=== PATIENT | male | born 1995 | race African-American/Black ===

== ENCOUNTER 2023-08-28 17:39 | Emergency (ER) | payer OTHER ==
[2023-08-28 17:45] VITALS: BP 103/64; PULSE 86; RESP 18; TEMP 98.2; BMI 22.5
[2023-08-28] MEDS ORDERED: diazePAM 2 MG TABLET ONE (18:32)
[2023-08-28] MEDS ORDERED: LIDOCAINE 4% PATCH TP ONE (18:32)
[2023-08-28] MEDS ORDERED: KETOROLAC TROMETHAMINE 30 MG/1 ML VIAL ONE (18:33)
[2023-08-28] MEDS: LIDOCAINE 5% TOPICAL PATCH TP ONE (18:39)
[2023-08-28] MEDS: KETOROLAC TROMETHAMINE 30 MG/1 ML VIAL IM ONE (18:40)
[2023-08-28] MEDS: diazePAM 2 MG TABLET PO ONE (18:41)
[2023-08-28 18:46] LABS: EPI CELLS 10 /uL (0-25.1); HYALINE CASTS 2 /uL (0-3.1); URINE APPEARANCE CLEAR; URINE BACTERIA 4 /uL (0-1359); URINE BILIRUBIN NEGATIVE (NEGATIVE); URINE COLOR DK YELLOW; URINE GLUCOSE (UA) NEGATIVE (NEGATIVE); URINE KETONE 1+ (NEGATIVE); URINE LEUK ESTERASE TRACE (NEGATIVE); URINE NITRITE NEGATIVE (NEGATIVE); URINE PROTEIN 1+ (NEGATIVE); URINE RBC 10 /uL (0-23.9); URINE WBC 16 /uL (0-25.8)
[2023-08-28] MEDS ORDERED: LIDOCAINE PATCH REMOVAL MC SCH (22:00)
== END 2023-08-28 19:22 | disposition home or self-care (01) ==
LOC: JERFT 17:39
PROC: 3E0133Z Introduction of Anti-inflammatory into Subcutaneous Tissue, Percutaneous Approach (ICD-10-PCS; principal; 2023-08-28)
DX: M54.50 Low back pain, unspecified (principal)
CPT/HCPCS: 81003; 99284-25